=== PATIENT | male | born 1970 | race Caucasian/White ===

== ENCOUNTER 2018-04-06 07:56 | Day surgery (SDC) | payer BC ==
--- NOTE | 2018-03-31 15:20 | HP ---
PREOPERATIVE HISTORY AND PHYSICAL: DATE OF ADMISSION/SURGERY: 04/06/18 - [facility] DATE OF OFFICE VISIT: 03/10/18 ATTENDING SURGEON: Dr. Kim Sanchez.* (DICTATED BY MODESTA EM) PROCEDURE: Right knee arthroscopy, partial meniscectomy. CHIEF COMPLAINT: Right knee. HISTORY OF PRESENT ILLNESS: Anup is a 47-year-old male who presents to the clinic with right knee pain. He has a history of meniscus repair in 2013 and removal of a bone spur. He states that he improved after the surgery, but has had pain in the right knee for several months. He states that it clicks and swells. It is worse with exercise. He rates this as a 2/10. He has difficulty jogging due to the pain. He reports intermittent catching medially. He climbs ladders at work which irritates him. Any deep flexion causes pain. He is unable to do a deep squat. He reports intermittent popping. He denies locking. He has chronic back pain and takes ibuprofen as needed for discomfort. He denies a recent injury. He denies numbness and tingling in the toes. He does have sciatica into his left leg. It does not affect his right leg. He has been doing physical therapy on and off for several years without relief. 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 He is not diabetic. He is a nonsmoker. He denies personal or family history of DVT or PE. PAST MEDICAL HISTORY: Hypercholesterolemia, depression, anxiety. PAST SURGICAL HISTORY: right knee. MEDICATIONS: 1. Oxybutynin 5 mg 1 every day. 2. Gabapentin 400 mg 1 capsule every day. 3. Lamotrigine 100 mg daily. 4. Atorvastatin 20 mg 1 at bedtime. 5. Trazodone 1 cap as needed. 6. Fish oil 1 daily. 7. Glucosamine 1 daily. 8. Vitamin B12 one daily. 9. Melatonin 1 daily. ALLERGIES: No known drug allergies. FAMILY HISTORY: Denies pertinent family history. SOCIAL HISTORY: He lives with his spouse. He works as an licensed electrician. He is a former smoker, quit 5 years ago. He denies alcohol use. He exercises regularly. He is right-hand dominant. REVIEW OF SYSTEMS: A 14-point review of systems was reviewed with the patient. Positive for blurred vision, diarrhea, chronic back pain, weakness, depression, anxiety, and current complaint. Denies history of DVT or PE, history of bleeding disorder, chest pain, shortness of breath, numbness or tingling, fever or chills. PHYSICAL EXAMINATION GENERAL: A 47-year-old well-developed, well-nourished male, in no acute distress. Alert and oriented x3. Appropriate mood and affect. Appropriate balance and coordination of the lower extremities. EXTREMITIES: Right lower extremity: Skin is intact. No warmth or erythema. Mild effusion. Range of motion 0 to 135. Stable to varus and valgus stress. Stable Jnai. Negative posterior drawer. Tenderness over the medial joint line. Calf soft, nontender. Positive Nitesh's. +5/5 strength to ankle dorsiflexion and plantar flexion. Sensation intact to light touch distally. Left lower extremity: Skin is intact. No warmth or erythema. Nontender to palpation. Full pain-free range of motion. Neurovascularly intact. DIAGNOSTIC STUDIES: MRI of the right knee was independently reviewed by Dr. Sanchez today in clinic and revealed horizontal posterior horn medial meniscus tear with parameniscal cyst and presence of a loose body with mild osteoarthritic changes. ASSESSMENT AND PLAN: Anup is a 47-year-old male, who presents to the clinic for right knee pain due to a medial meniscus tear. He has failed conservative measures to include physical therapy and anti-inflammatories and therefore has agreed to undergo a right knee arthroscopy with partial meniscectomy with Dr. Sanchez on 04/06/18. Risks of surgery to include risks of anesthesia; injury to blood vessels, nerves, surrounding structures; bleeding; infection; stiffness; need for further surgery; persistent pain; DVT or PE were discussed with the patient. He will follow up 10 to 14 days postop for followup and suture removal. Percocet will be used for postop pain management. MODESTA EM [id number]/[facility] #: [id number] [facility] CENTERZ[facility]
[~2018-04-06 07:56] MED LIST: Buffered Lidocaine 0.9% SYRIN* 5 ML/SYR SYRINGE INTRADERM ONE; Dexamethasone IV* 4 MG/ML 1 ML (4 MG) IV SLOW PU ONE; Famotidine IV* 10 MG/ML 2 ML (20 mg) IV ONE
[2018-04-06] MEDS ORDERED: ceFAZolin 2 GM PREMIX (*) 2 GM/50 ML BAG IVPB ONE (08:00)
[2018-04-06] MEDS ORDERED: Famotidine IV* 10 MG/ML 2 ML (20 mg) ONE (08:01)
[2018-04-06] MEDS ORDERED: Dexamethasone IV* 4 MG/ML 1 ML (4 MG) ONE (08:01)
[2018-04-06] MEDS ORDERED: Lidocain 1% EPI 1:100,000 * 30 ML MDV ONE (08:45)
[2018-04-06] MEDS ORDERED: Bupivacaine 0.5% PF 10 ML VIAL INJ ONE (08:45)
[2018-04-06] MEDS ORDERED: Naloxone* 0.4 MG/ML 1 ML VIAL IV PRN (08:46)
[2018-04-06] MEDS ORDERED: fentaNYL* 50 MCG/ML 2 ML VIAL (100 MCG VIAL) ONE (08:54)
[2018-04-06] MEDS ORDERED: Midazolam* 1 MG/ML 2 ML VIAL (2 MG) ONE (08:54)
[2018-04-06] MEDS ORDERED: Chloroprocaine 2%* 20 ML VIAL ONE (08:58)
[2018-04-06] MEDS ORDERED: Ketorolac INJ* 30 MG/ML 1 ML VIAL ONE (10:26)
[2018-04-06 12:45] VITALS: BP 129/76
--- NOTE | 2018-04-06 21:53 | OP ---
DATE OF OPERATION: 04/06/18 - [facility] DATE OF : 74 ATTENDING PHYSICIAN: Kim Sanchez MD MARINE DESIGNER: None available. ANESTHESIOLOGIST: Dr. Sky. ANESTHESIA: Spinal with local MAC. PRE-OP DIAGNOSIS: Right knee medial meniscus tear. POST-OP DIAGNOSES: Right knee medial meniscus tear, lateral meniscus fraying, mild osteoarthritis of the medial compartment and moderate of the trochlea. OPERATIVE PROCEDURE: Right knee arthroscopy, partial meniscectomy. COMPLICATIONS: None. ESTIMATED BLOOD LOSS: Minimal. TOURNIQUET TIME: Zero minutes. INDICATIONS: Anup Rosenbaum is a 47-year-old male who has had deep knee pain. He had a meniscus repair in 2012 with removal of a bone spur. He has had increased catching and swelling and pain. He has pain with deep flexion. He has a meniscus tear on MRI as well as parameniscal cyst. The risks and benefits of surgery were discussed at length and included but are not limited to bleeding, infection, damage to nerves, vessels, surrounding structures, wound nonhealing, persistent pain, need for surgery, scarring, stiffness, incomplete relief of symptoms, risks of anesthesia. DESCRIPTION OF PROCEDURE: The patient was greeted in the preoperative area by the attending surgeon. The correct extremity was marked and the consent was confirmed. The patient was brought back to the operating suite where he was placed in the supine position on the operating table. He then underwent spinal anesthesia with local sedation after which an unsterile tourniquet was placed high on the right leg and the lateral post was positioned. The right leg was prepped and draped in the usual sterile fashion beginning with chlorhexidine soap, scrub, and alcohol wipe and a final prep with ChloraPrep. After appropriate surgical pause indicating side, site, procedure, and administration of antibiotics, the knee was intra-articularly injected with 1% lidocaine plain. The anterolateral portal was made using a 11 blade. The scope was introduced into the joint. Joint was examined. There was an area of grade 2 changes about the medial aspect of the medial condyle close to the notch , but the remainder of the medial femoral condyle had grade 0 to 1 changes. There was an unstable parrot-beak type tear of the medial meniscus; this was flapping in the joint. The plateau had grade 0 to 1 changes. The anteromedial portal was made using an 18-gauge needle for localization. The shaver and biters were used to debride back the meniscus, which extended all the way to the root. The cyst was also gently decompressed as well. The ACL and PCL was intact. The knee was placed in the lateral [id number] position and there was some fraying of the lateral meniscus. This was debrided back using a shaver as well as the body of the meniscus. The lateral femoral condyle and lateral plateau had grade 0 to 1 changes. Knee was then placed in extension. There was synovitis underneath the kneecap as well. The vast majority of the patella had grade 0 to 1 changes and the very center port had grade 2 changes with mild fraying but the trochlea had grade 3 changes with some unstable flaps , these were debrided back. Once the meniscectomy procedure was done, the knee was thoroughly lavaged with sterile saline. The wounds were irrigated thoroughly. The portals were closed with 3-0 nylon. The knee was intra- articularly injected with 0.25% Marcaine plain. Sterile dressings were applied. A Cryo/Cuff was applied. He was awoken from anesthesia and transferred to the PACU in stable condition. POSTOPERATIVE PLAN: He will be discharged on pain medication. DVT prophylaxis was considered but deferred due to no previous personal or family history. I will see the patient back in 10 to 14 days. [id number]/[facility] #: [id number] PETRA
== END 2018-04-06 12:56 | disposition home or self-care (01) ==
LOC: OREAST 07:56
PROVIDERS: ATTEND Orthopaedic Surgery
DX: S83.241A Other tear of medial meniscus, current injury, right knee, initial encounter (principal); S83.281A Other tear of lateral meniscus, current injury, right knee, initial encounter; E78.00 Pure hypercholesterolemia, unspecified; M10.9 Gout, unspecified; F41.8 Other specified anxiety disorders; Z87.891 Personal history of nicotine dependence; X50.3XXA Overexertion from repetitive movements, initial encounter; Y92.9 Unspecified place or not applicable
CPT/HCPCS: 88304; J0690; J1100; J1885; J2250; J2400; J3010

== ENCOUNTER 2024-06-30 10:56 | Observation (INO) ==
[2024-06-30] MEDS ORDERED: FILGRASTIM 480 MCG/0.8 ML SYRINGE (NF) SUBCUT ONE (12:06)
[2024-06-30 12:27] LABS: Mean Corpuscular Hemoglobin 30.6 pg (27-33); Mean Corpuscular Hgb Conc 34.5 g/dL (31-36); Mean Corpuscular Volume 88.5 fL (80-97); Red Blood Count 2.94 10^6/uL (4.06-5.63); Red Cell Distribution Width 12.5 % (12-17)
[2024-06-30 13:06] LABS: Albumin 3.7 g/dL (3.2-5.2); Albumin/Globulin Ratio 2.1 (1-3); Calcium 8.7 mg/dL (8.6-10.3); Creatinine, Serum 0.65 mg/dL (0.67-1.17); Globulin 1.8 g/dL (2-4); Potassium 4.2 mmol/L (3.5-5.0); Total Bilirubin 0.6 mg/dL (0.2-1.0); Total Protein 5.5 g/dL (6.4-8.9); eGFR CKD-EPI 114.1 (>60)
[2024-06-30 13:08] LABS: ABS Lymphocytes 0.2 10^3/uL (1.0-4.8); ABS Monocytes 0.1 10^3/uL (0.0-1.1); ABS Neutrophils 0.1 10^3/uL (1.5-7.6); Eosinophil % 5.6 %; Lymphocyte % 54.3 %; Mean Platelet Volume 8.2 fL (7.5-11.2); Nucleated Red Blood Cells % 0.6 %/100WBC (0.0-0.8); Platelet Count 18 10^3/uL (150-450); White Blood Count 0.4 10^3/uL (3.6-10.2)
[2024-06-30] MEDS: Acetaminophen IV 1 GM/100ML 1,000 MG/100 ML BAG IV ONE (13:21)
[2024-06-30] MEDS: Ondansetron 4 mg VIAL 2 MG/ML 2 ml VIAL IV ONE (13:21)
[2024-06-30 17:28] LABS: Mean Platelet Volume 8.2 fL (7.5-11.2); Platelet Count 28 10^3/uL (150-450)
[2024-07-01 06:36] LABS: Albumin 3.6 g/dL (3.2-5.2); Albumin/Globulin Ratio 1.8 (1-3); Calcium 8.9 mg/dL (8.6-10.3); Creatinine, Serum 0.61 mg/dL (0.67-1.17); Magnesium 1.9 mg/dL (1.9-2.7); Potassium 4.3 mmol/L (3.5-5.0); Total Bilirubin 0.6 mg/dL (0.2-1.0); Total Protein 5.6 g/dL (6.4-8.9); eGFR CKD-EPI 116.3 (>60)
[2024-07-01 08:27] LABS: ABS Lymphocytes 0.2 10^3/uL (1.0-4.8); ABS Monocytes 0.1 10^3/uL (0.0-1.1); ABS Neutrophils 0.1 10^3/uL (1.5-7.6); Eosinophil % 5.7 %; Hematocrit 28.1 % (38-53); Hemoglobin 9.6 g/dL (13.2-16.3); Lymphocyte % 45.5 %; Mean Corpuscular Hemoglobin 30.3 pg (27-33); Mean Corpuscular Hgb Conc 34.2 g/dL (31-36); Mean Corpuscular Volume 88.5 fL (80-97); Mean Platelet Volume 8.9 fL (7.5-11.2); Nucleated Red Blood Cells % 0.6 %/100WBC (0.0-0.8); Platelet Count 31 10^3/uL (150-450); Red Blood Count 3.17 10^6/uL (4.06-5.63); Red Cell Distribution Width 12.3 % (12-17); White Blood Count 0.5 10^3/uL (3.6-10.2)
[2024-07-01] MEDS ORDERED: HYDROcodone/ACETAMIN 5/325 mg TAB PO PRN (15:41)
[2024-07-02 06:45] LABS: Creatinine, Serum 0.64 mg/dL (0.67-1.17); Magnesium 1.9 mg/dL (1.9-2.7); Potassium 4.4 mmol/L (3.5-5.0); eGFR CKD-EPI 114.6 (>60)
[2024-07-02 07:14] LABS: Hematocrit 29.9 % (38-53); Hemoglobin 10.1 g/dL (13.2-16.3); Mean Corpuscular Hemoglobin 29.8 pg (27-33); Mean Corpuscular Hgb Conc 33.8 g/dL (31-36); Mean Corpuscular Volume 88.1 fL (80-97); Mean Platelet Volume 8.9 fL (7.5-11.2); Platelet Count 27 10^3/uL (150-450); Red Blood Count 3.39 10^6/uL (4.06-5.63); Red Cell Distribution Width 12.2 % (12-17); White Blood Count 0.9 10^3/uL (3.6-10.2)
[2024-07-02 07:15] LABS: ABS Neutrophils 0.4 10^3/uL (1.5-7.6)
[2024-07-02 08:21] LABS: ABS Lymphocytes 0.3 10^3/uL (1.0-4.8); ABS Monocytes 0.1 10^3/uL (0.0-1.1); Eosinophil % 3.4 %; Lymphocyte % 36.6 %; Nucleated Red Blood Cells % 0.2 %/100WBC (0.0-0.8)
[2024-07-02 13:58] VITALS: BP 105/63
[2024-07-02 17:02] LABS: ABS Lymphocytes 0.4 10^3/uL (1.0-4.8); ABS Monocytes 0.3 10^3/uL (0.0-1.1); ABS Neutrophils 0.7 10^3/uL (1.5-7.6); Eosinophil % 2.6 %; Hematocrit 30.1 % (38-53); Hemoglobin 10.4 g/dL (13.2-16.3); Lymphocyte % 28.5 %; Mean Corpuscular Hgb Conc 34.4 g/dL (31-36); Mean Corpuscular Volume 87.2 fL (80-97); Mean Platelet Volume 8.9 fL (7.5-11.2); Nucleated Red Blood Cells % 0.1 %/100WBC (0.0-0.8); Platelet Count 25 10^3/uL (150-450); Red Blood Count 3.46 10^6/uL (4.06-5.63); Red Cell Distribution Width 12.2 % (12-17); White Blood Count 1.4 10^3/uL (3.6-10.2)
[2024-07-02 17:27] LABS: ABS Lymphocytes 0.4 10^3/ul (1.0-4.8); ABS Monocytes 0.3 10^3/ul (0.0-1.1); ABS Neutrophils 0.7 10^3/ul (1.5-7.6)
== END 2024-07-02 18:11 | disposition home or self-care (01) ==
LOC: ED 10:56 → EDHOLD 10:56 → MED 16:18
PROVIDERS: ADMIT Student in an Organized Health Care Education/Training Program; ATTEND Student in an Organized Health Care Education/Training Program